=== PATIENT | male | born 1975 | race Hispanic/Latino ===

== ENCOUNTER 2018-04-30 12:26 | Emergency (ER) | payer BC ==
[2018-04-30 12:41] VITALS: O2SAT 98; BMI 36.0
--- NOTE | 2018-04-30 13:11 | ED PDOC ---
HPI: Back Chief Complaint (Provider): left flank pain History Per: Patient, Family History/Exam Limitations: clinical condition Onset/Duration Of Symptoms: Hrs Current Symptoms Are (Timing): Still Present Quality Of Discomfort: "Pain" Pain Scale Rating Of: 10 Additional Complaint(s): 43 y/o male with h/o of Kidney Stone presents complaining of Left flank pain since this morning, associated with nausea, and a lot of vomiting episodes. Also complaining of diarrheas since today. Denies fevers, chills, abdominal pain , chest pain, SOB. PMD: Dr. Don Banda <Demetria Loo - Last Filed: 04/30/18 16:56> <Rachael Arzola - Last Filed: 05/01/18 15:03> Chief Complaint (Nursing): Back Pain Past Medical History Vital Signs: Last Vital Signs Temp 97 F L 04/30/18 12:38 Pulse 73 04/30/18 12:38 Resp BP 126/85 04/30/18 12:38 Pulse Ox 98 04/30/18 12:38 - Medical History Other PMH: Kidney Stone - Family History Family History: States: Unknown Family Hx - Social History Current smoker - smoking cessation education provided: No Ex-Smoker (has not smoked in the last 12 months): No Alcohol: None Drugs: Denies <Demetria Loo - Last Filed: 04/30/18 16:56> Reviewed: Historical Data, Nursing Documentation, Vital Signs Vital Signs: Last Vital Signs Temp 97 F L 04/30/18 12:38 Pulse 73 04/30/18 12:38 Resp BP 126/85 04/30/18 12:38 Pulse Ox 98 04/30/18 14:52 - Surgical History Surgical History: No Surg Hx <Rachael Arzola - Last Filed: 05/01/18 15:03> - Home Medications Home Medications: Ambulatory Orders Medication Instructions Recorded Ciprofloxacin HCl [Cipro] 500 mg PO BID #10 tablet 04/30/18 Ketorolac Tromethamine [Toradol] 10 mg PO TID PRN #20 tab 04/30/18 Tamsulosin [Flomax] 0.4 mg PO DAILY #14 cap 04/30/18 - Allergies Allergies/Adverse Reactions: Allergies Allergy/AdvReac Type Severity Reaction Status Date / Time Penicillins Allergy RASH Verified 04/30/18 12:44 Supervising Attending Note - Supervising Attending Note The Documented history was done by the: Physician Tube And Manifold Builder, Attending Physician The documented physical exam was done by the: Physician Tube And Manifold Builder, Attending Physician The documented procedures were done by the: Physician Tube And Manifold Builder, Attending Physician - Attestation: I have personally seen and examined this patient.: Yes I have fully participated in the care of the patient.: Yes I have reviewed all pertinent clinical information: Yes <Rachael Arzola - Last Filed: 05/01/18 15:03> Review of Systems ROS Statement: Except As Marked, All Systems Reviewed And Found Negative (as per HPI) <Demetria Loo - Last Filed: 04/30/18 16:56> ROS Statement: Except As Marked, All Systems Reviewed And Found Negative <Rachael Arzola - Last Filed: 05/01/18 15:03> Physical Exam - Reviewed Nursing Documentation Reviewed: Yes Vital Signs Reviewed: Yes - Physical Exam Appears: Positive for: Non-toxic, Uncomfortable (because pain) Head Exam: Positive for: ATRAUMATIC, NORMOCEPHALIC Skin: Positive for: Normal Color, Warm, Dry. Negative for: Jaundice, Mottled, Cyanosis Cardiovascular/Chest: Positive for: Regular Rate, Rhythm. Negative for: Chest Non Tender, Edema, Bradycardia, Tachycardia Respiratory: Positive for: Normal Breath Sounds. Negative for: Decreased Breath Sounds, Accessory Muscle Use, Crackles, Rales, Rhonchi, Wheezing, Respiratory Distress Gastrointestinal/Abdominal: Positive for: Bowel Sounds (present), Soft. Negative for: Tenderness, Distended, Guarding, Rebound Back: Positive for: L CVA Tenderness. Negative for: R CVA Tenderness Neurologic/Psych: Positive for: Alert, Oriented <Demetria Loo - Last Filed: 04/30/18 16:56> - Reviewed Nursing Documentation Reviewed: Yes <Rachael Arzola - Last Filed: 05/01/18 15:03> - Laboratory Results Result Diagrams: 04/30/18 13:20 04/30/18 13:20 - ECG O2 Sat by Pulse Oximetry: 98 <Demetria Loo - Last Filed: 04/30/18 16:56> - Laboratory Results Result Diagrams: 04/30/18 13:20 04/30/18 13:20 - Progress Re-evaluation Time: 16:48 Condition: Re-examined, Improved <Rachael Arzola - Last Filed: 05/01/18 15:03> Medical Decision Making Medical Decision Making: Left Flank Pain -associated with N/V -Toradol 15 mg IV once -Zofran 4 mg IV once -IV Fluids 1 L bolus once -CBC, CMP, Lipase -Abd & Pelvis CT scan w/o contrast case discussed with Dr. Arzola Re-evaluation -CBC, CMP, Lipase WNL -pain improved significantly after Toradol -Pending CT scan -urine dip showed moderate blood CT scan repoted as IMPRESSION: Small approximately 4.4 mm obstructing calculus at or just below the level of the left UVJ with mild left-sided hydronephrosis. There are several punctate calcifications also seen scattered about the collecting system left kidney. See above discussion for additional details Fatty infiltration. Patient feels well, and stable to be discharged home with recommended outpatient f/u with PMD and Urology. <Demetria Loo - Last Filed: 04/30/18 16:56> Disposition - Patient ED Disposition Is Patient to be Admitted: No Discussed With : Rachael Arzola - Disposition Disposition: Routine/Home <Demetria Loo - Last Filed: 04/30/18 16:56> - Patient ED Disposition Is Patient to be Admitted: No Doctor Will See Patient In The: Office Counseled Patient/Family Regarding: Studies Performed, Diagnosis, Need For Followup - Disposition Disposition: Routine/Home Disposition Time: 16:49 <Rachael Arzola - Last Filed: 05/01/18 15:03> - Clinical Impression Clinical Impression: Left ureteral stone, Renal colic on left side - Disposition Referrals: Juice Ivan MD [Medical Doctor] - Condition: GOOD Additional Instructions: Take your medications as instructed. Follow up with your PCP in 2-3 days, Prescriptions: Ciprofloxacin HCl [Cipro] 500 mg PO BID #10 tablet Ketorolac Tromethamine [Toradol] 10 mg PO TID PRN #20 tab PRN Reason: Pain, Moderate (4-7) Tamsulosin [Flomax] 0.4 mg PO DAILY #14 cap Instructions: Renal Colic (DC)
[2018-04-30] MEDS ORDERED: Sodium Chloride 0.9% 1,000 ML IV SCH (13:15)
[2018-04-30 13:39] LABS: ALB/GLOB RATIO 1.6 (1.0-2.1); ALBUMIN 4.9 g/dL (3.5-5.0); ALT/SGPT 67 U/L (21-72); AST/SGOT 38 U/L (17-59); BLOOD UREA NITROGEN 15 mg/dl (9-20); CALCIUM 9.6 mg/dL (8.4-10.2); GFR AFRICAN-AMERICAN > 60; GFR NON-AFRICAN AMERICAN > 60; LIPASE 72 U/L (23-300)
[2018-04-30 13:40] LABS: BASO # 0.1 K/uL (0.0-0.2); BASO % 1.1 % (0.0-2.0); EOS # 0.1 K/uL (0.0-0.7); EOS % 1.6 % (0.0-4.0); HEMOGLOBIN 14.6 g/dL (12.0-18.0); LYMPH # 3.3 K/uL (1.0-4.3); MEAN CELL VOLUME 88.9 fl (80.0-94.0); MEAN CORPUSCULAR HEMOGLOBIN 30.4 pg (27.0-31.0); MEAN CORPUSCULAR HGB CONC 34.2 g/dL (33.0-37.0); MEAN PLATELET VOLUME 10.5 fl (7.2-11.7); MONO # 0.6 K/uL (0.0-0.8); MONO % 9.2 % (0.0-10.0); NEUT # 2.9 K/uL (1.8-7.0); NEUT % 41.1 % (50.0-75.0); NRBC % 0.1 % (0.0-0.0); RBC 4.81 Mil/uL (4.40-5.90); RED CELL DISTRIBUTION WIDTH 13.8 % (11.5-14.5)
--- NOTE | 2018-04-30 15:52 | CT ---
PROCEDURE: CT abdomen pelvis the dated 04/30/2018. HISTORY: Left flank pain COMPARISON: Comparison made with CT scan abdomen pelvis 02/14/2016. TECHNIQUE: Contiguous helical/transaxial sections abdomen pelvis without contrast. Additional 2D sagittal and coronal reformats generated. Radiation dose: Total exam DLP = 1056.36 mGy-cm. This CT exam was performed using one or more of the following dose reduction techniques: Automated exposure control, adjustment of the mA and/or kV according to patient size, and/or use of iterative reconstruction technique. FINDINGS: LOWER THORAX: . Heart size is within range of normal. No significant pericardial effusion. There is a small hiatal hernia. Minor passive/ dependent type atelectasis both posterior lower lung zones. . Some minimal linear scarring right middle lobe region. Lung bases are otherwise clear without effusion or pneumothorax. LIVER: Liver exhibits normal size. Mild to moderate diffuse fatty hepatic infiltration. No obvious hepatic mass or collection seen on this noncontrast exam. GALLBLADDER AND BILE DUCTS: Physiologically distended. No evidence of intraluminal gallbladder calculi. PANCREAS: Unremarkable. No gross lesion or ductal dilatation. SPLEEN: Spleen exhibits normal size and attenuation pattern without mass collection or calcification. ADRENALS: No adrenal lesions. KIDNEYS AND URETERS: Kidneys demonstrate relatively symmetric nephrograms. Multiple punctate calcifications seen scattered about the collecting system left kidney. . There is a small approximately 4.4 mm calculus with located at or just below the left the UPJ region which results in mild left-sided hydronephrosis. VASCULATURE: Unremarkable. No aortic aneurysm. BOWEL: Evaluation of the bowel is limited due to the lack of oral contrast. Stomach is incompletely distended which in part accounts for thick-walled appearance. Gastritis or other intrinsic wall lesion not excluded. Multiple small bowel loops contain some fecalized content however no evidence of acute mechanical small bowel obstruction. . : Unremarkable without evidence of mural wall thickening APPENDIX: Normal-appearing appendix best seen on axial image number [id number]. No periappendiceal inflammatory changes. PERITONEUM: Unremarkable. No free fluid. No free air. Small fat containing umbilical hernia. Small fat containing bilateral inguinal hernias. LYMPH NODES: Unremarkable. No enlarged lymph nodes. BLADDER: Urinary bladder is physiologically distended. No evidence of intraluminal urinary bladder calculi. REPRODUCTIVE: Unremarkable. BONES: Mild multilevel degenerative spondylosis of the lower thoracic and lumbar spine. OTHER FINDINGS: None. IMPRESSION: Small approximately 4.4 mm obstructing calculus at or just below the level of the left UVJ with mild left-sided hydronephrosis. There are several punctate calcifications also seen scattered about the collecting system left kidney. See above discussion for additional details Fatty infiltration.
[2018-04-30 17:03] VITALS: BP 117/65; PULSE 74; RESP 16; TEMP 98
== END 2018-04-30 17:02 | disposition home or self-care (01) ==
LOC: H.ER 12:26
DX: N13.2 Hydronephrosis with renal and ureteral calculous obstruction (principal); Z88.0 Allergy status to penicillin
CPT/HCPCS: 74176; 80053; 83690; 85025; 96361; 96374; 96375; 99284; J1885; J2405; J7030